=== PATIENT | male | born 1965 | race Caucasian/White ===

== ENCOUNTER 2021-11-16 10:39 | Inpatient (IN) ==
[2021-11-16] MEDS ORDERED: MoRPHine SULFATE 10 MG/ML CARP/VIAL IV STA (11:03)
[2021-11-16] MEDS ORDERED: SODIUM CHLORIDE 0.9% 1000ML 1,000 ML IV STA (11:03)
[2021-11-16] MEDS ORDERED: ONDANSETRON INJ 2 MG/ML 2 ML VIAL IV STA (11:03)
--- NOTE | 2021-11-16 11:19 | Emergency Department Note ---
History of Present Illness General Chief complaint: Flank Pain Stated complaint: LITHOTRIPSY ON WED/SEVERE R SIDE KIDNEY PAIN Time Seen by Provider: 11/16/21 10:58 History of Present Illness Maximum Pain Intensity: 9 55-year-old male who returns to the emergency department with complaint of recurrent and severe right flank pain. The patient was initially seen in the emergency department on 11/11/[address] showing a 7 mm proximal right ureteral calculus with mild hydroureteronephrosis. The patient underwent ESWL this past Wednesday morning (11/14/2021) with Dr. Looney. The patient reports that he was doing well until late last evening when the pain started to come back. He now reports high flank pain radiating into the right lower quadrant. He has not noticed any significant blood in his urine. The patient has had nausea and vomiting this morning. He denies fever or chills. He rates his discomfort a 9 out of 10. The patient took some hydrocodone this morning without relief. Home Medications Medication Instructions Recorded Confirmed Type fosinopril 10 mg tablet 10 mg PO HS 05/09/19 11/16/21 History omeprazole 20 mg capsule,delayed 20 mg PO HS 05/09/19 11/16/21 History release hydroxyzine HCl 25 mg tablet 25 mg PO BID 07/13/19 11/16/21 History aspirin 81 mg tablet,delayed 81 mg PO HS 02/01/20 11/16/21 History release rosuvastatin 10 mg tablet (Crestor) 10 mg PO HS 02/01/20 11/16/21 History lidocaine 5 % topical patch 1 patch TOP DAILY PRN 03/07/20 11/16/21 History (Lidoderm) azelastine 137 mcg (0.1 %) nasal 1 spray INTRANASAL DAILY PRN 09/15/20 11/16/21 History spray aerosol bictegravir 50 mg-emtricitabine 1 tab PO HS 09/15/20 11/16/21 History 200 mg-tenofovir alafenam 25 mg tablet (Biktarvy) fluoxetine 10 mg capsule 10 mg PO HS 09/15/20 11/16/21 History metoprolol succinate 25 mg 25 mg PO HS 09/15/20 11/16/21 History tablet,extended release 24 hr montelukast 10 mg tablet 10 mg PO HS 09/15/20 11/16/21 History albuterol sulfate 90 mcg/actuation 1 puff INHALATION Q6H PRN 10/04/20 11/16/21 History aerosol inhaler (ProAir HFA) ondansetron 4 mg disintegrating 4 mg PO Q6H PRN #10 tab 11/11/21 11/16/21 Rx tablet oxycodone 5 mg tablet 5 mg PO Q4H PRN #15 tab 11/11/21 11/16/21 Rx tamsulosin 0.4 mg capsule (Flomax) 0.4 mg PO HS 11/11/21 11/16/21 History hydrocodone 5 mg-acetaminophen 325 1 tab PO Q6H PRN #10 tab 11/14/21 11/16/21 Rx mg tablet Allergies Allergy/AdvReac Type Severity Reaction Status Date / Time No Known Allergies Allergy Verified 11/14/21 08:30 Past Med/Surg History Medical History Anxiety Chronic obstructive pulmonary disease inhaler prn Depression Diverticulitis History of kidney stones HIV (human immunodeficiency virus infection) Hypertension Sleep apnea cpap Surgical History History of colonoscopy History of cystoscopy History of esophagogastroduodenoscopy (EGD) History of lithotripsy History of tonsillectomy History of tooth extraction Family History Other No family history of adverse response to anesthesia No significant family history Social History Smoking Status: Current every day smoker Tobacco Type: Cigarettes Cigarettes Per Day: 10 a day; Second Hand Exposure: No; Do You Dip or Chew Tobacco: No; Tobacco Cessation Education Requested by Patient: No Hx Alcohol Use: Yes Alcohol type: beer Hx Substance Use: No Preferred Language: Monegasque Communication Ability: Effective 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 Beliefs That Will Affect Care: None marital status: Single Current Living Situation: Spouse current occupational status: employed Other Information That Helps Us Care for You: No Feels Safe at Home: Yes Safety Concerns: Feels Safe At This Time Assistive Devices: Glasses Review of Systems 10 system review was performed and was negative except for pertinent positives and negatives as indicated in history of present illness Physical Exam Vital Signs Vital Signs - 24 hr 11/16/21 10:54 11/16/21 11:26 Temperature 36.0 C L Temperature Source Temporal Artery Scan Pulse Rate 70 Pulse Rate [Apical] 66 Pulse Rhythm Regular Pulse Rhythm [Apical] Regular Pulse Strength Normal Pulse Strength [Apical] Normal Respiratory Rate 20 18 Respiratory Effort / Characteristics Non-Labored Spontaneous Non-Labored Respiratory Depth Normal Normal Respiratory Pattern Regular Regular Blood Pressure 190/94 H Blood Pressure [Left Arm] 173/102 H Blood Pressure Mean 126 Blood Pressure Mean [Left Arm] 125 Blood Pressure Position Sitting Blood Pressure Position [Left Arm] Lying Pulse Oximetry 98 98 Oxygen Delivery Method Room Air Room Air Sepsis Recent Fever Within 48 Hours No Sepsis New/Unexplained Change in Mental Status No Sepsis Action Taken by Nursing No Action Required CONSTITUTIONAL: Healthy and well nourished. Patient appears in moderate discomfort. He is holding an emesis bag HEENT: No scleral icterus or conjunctival injection/pallor. NECK: Full active range of motion without discomfort. LYMPHATICS: No cervical chain adenopathy. RESPIRATORY: Clear to auscultation bilaterally with no wheezing, crackles, rhonchi or stridor. CARDIOVASCULAR: Regular rate and rhythm with no murmurs, rubs or gallops. GASTROINTESTINAL: Bowel sounds present in all quadrants. Patient has notable right lower quadrant and right flank tenderness to palpation. No abdominal rigidity, guarding or rebound. MUSCULOSKELETAL: Full range of motion of all joints without discomfort. INTEGUMENTARY: No rash or other significant dermatologic conditions noted. HEMATOLOGIC: No ecchymosis or petechiae. PSYCHIATRIC: Positive affect. NEUROLOGIC: No focal neurologic deficits noted. Course Course Patient history and physical exam were performed. Nurses notes were reviewed. Vital signs were reviewed, showing an elevated blood pressure 190/94. The patient is otherwise not tachycardic or febrile. I did review prior medical records, including the patient's ED visit on 11/11/2021, as well as the patient's ESWL procedure notes from 11/14/2021. She now presents to the emergency department with increasing pain after having a. Of note discomfort after his lithotripsy procedure. IV access was established, and labs were drawn. The patient was hydrated with a liter of normal saline, and administered IV morphine and Zofran. Review of labs shows an elevated white count of over 17,000. Creatinine and CMP are otherwise unremarkable. Urinalysis shows hematuria without signs of infection. Repeat noncontrast CT imaging of the abdomen and pelvis shows a 6 mm distal right ureteral calculus with a few UVJ stone fragments, and moderate hydroureteronephrosis. Findings were discussed with the patient, who reported minimal pain relief with the IV morphine. The patient was administered IV Toradol and Dilaudid. The case was then further discussed with Dr. Looney, urologist, who recommended admission to the hospital, and if he is unable to pass the stone by morning, may have to perform an additional interventional procedure. Case was then further discussed with the [facility] hospitalist service. Please see their and Dr. Looney's dictations for further treatment and final disposition. The hospitalist service did request that I put in an order for an IV antibiotic given his leukocytosis and history of HIV. An order was placed for IV Rocephin. Administered Medications Ceftriaxone Sodium 1,000 mg/ (Dextrose) 50 mls @ 100 mls/hr IV Q24H FRANCISCA; Protocol Stop: 11/26/21 12:59 Last Infusion: 11/16/21 13:15 Dose: 0 mls/hr Documented by: [id number] Admin: 11/16/21 13:12 Dose: 100 mls/hr Documented by: [id number] Lactated Ringer's (Lr) 1,000 mls @ 75 mls/hr IV .[id number] FRANCISCA Stop: 12/16/21 17:59 Last Admin: 11/16/21 17:16 Dose: 75 mls/hr Documented by: [id number] Discontinued Medications Hydromorphone HCl (Hydromorphone Inj 0.5 Mg/0.5 Ml Syr) 0.5 mg IV NOW STA Stop: 11/16/21 12:24 Last Admin: 11/16/21 12:41 Dose: 0.5 mg Documented by: [id number] Sodium Chloride (Nss 1000ml) 1,000 mls @ 999 mls/hr IV .[id number] STA Stop: 11/16/21 12:03 Last Infusion: 11/16/21 13:30 Dose: 0 mls/hr Documented by: [id number] Admin: 11/16/21 11:13 Dose: 999 mls/hr Documented by: [id number] Ketorolac Tromethamine (Ketorolac Tromethamine 15 Mg/Ml Vial) 15 mg IV NOW STA Stop: 11/16/21 12:24 Last Admin: 11/16/21 12:40 Dose: 15 mg Documented by: [id number] Morphine Sulfate (Morphine Sulfate 10 Mg/Ml Carp/Vial) 8 mg IV NOW STA Stop: 11/16/21 11:04 Last Admin: 11/16/21 11:12 Dose: 8 mg Documented by: [id number] Morphine Sulfate (Morphine Sulfate 4 Mg/Ml 1 Ml Carp\Vial) Confirm Administered Dose 4 mg .ROUTE .STK-MED ONE Stop: 11/16/21 16:53 Last Admin: 11/16/21 16:56 Dose: 3 mg Documented by: [id number] Ondansetron HCl (Ondansetron Inj 2 Mg/Ml 2 Ml Vial) 4 mg IV NOW STA Stop: 11/16/21 11:04 Last Admin: 11/16/21 11:12 Dose: 4 mg Documented by: [id number] Medical Decision Making Medical Records Attestation: I reviewed the patient's medical records. Home Medications Current Medication List: was personally reviewed by me Laboratory Data Attestation: I reviewed the patient's lab results. Result diagrams: 11/16/21 11:22 11/16/21 11:22 Lab Results 11/16/21 11/16/21 11/16/21 Range/Units 11: 11:22 11:22 WBC 17.01 H (4.8-10.8) K/uL RBC 4.49 L (4.7-6.1) M/uL Hgb 14.6 (14.0-18.0) g/dL Hct 42.5 (42-52) % MCV 94.7 (80-100) fL MCH 32.5 (25-34) pg MCHC 34.4 (32-36) g/dL RDW Std Deviation 49.3 H (36.4-46.3) fL RDW Coeff of Josephine 14.1 (11.5-14.5) % Plt Count 280 (130-400) K/uL MPV 10.6 H (7.4-10.4) fL Immature Gran % (Auto) 0.2 % Neut % (Auto) 71.9 % Lymph % (Auto) 14.3 % Hughes % (Auto) 12.6 % Eos % (Auto) 0.8 % Baso % (Auto) 0.2 % Neut # (Auto) 12.20 H (1.4-6.5) K/uL Lymph # (Auto) 2.44 (1.2-3.4) K/uL Hughes # (Auto) 2.15 H (0.11-0.59) K/uL Eos # (Auto) 0.14 (0-0.5) K/uL Baso # (Auto) 0.04 (0-0.2) K/uL Immature Gran # (Auto) 0.04 H (0.00-0.02) K/uL Sodium 132 L (136-145) mmol/L Potassium 3.9 (3.5-5.1) mmol/L Chloride 98 (98-107) mmol/L Carbon Dioxide 25 (21-32) mmol/L Anion Gap 9 (3-11) BUN 12 (6-23) mg/dl Creatinine 0.84 (0.6-1.4) mg/dl Est Cr Clr Drug Dosing 112.5 ml/min Est GFR ( Amer) 112.7 ml/min Est GFR (Non-Af Amer) 97.2 ml/min BUN/Creatinine Ratio 14.3 (10-20) Glucose 95 (70-99(Fasting)) mg/dl Calcium 8.6 (8.5-10.1) mg/dl Total Bilirubin 0.5 (0.2-1.0) mg/dl AST 21 (13-39) U/L ALT 16 (7-52) U/L Alkaline Phosphatase 80 (34-104) U/L Total Protein 7.6 (6.0-8.3) gm/dl Albumin 4.2 (3.4-5.0) gm/dl Globulin 3.4 (2.5-4.0) gm/dl Albumin/Globulin Ratio 1.2 (0.9-2) Lipase 25 (11-82) U/L Urine Color Yellow Urine Appearance Clear (Clear) Urine pH 7.0 (4.5-7.5) Ur Specific [place] 1.013 (1.000-1.030) Urine Protein Negative (Negative) Urine Glucose (UA) Negative (Negative) Urine Ketones Negative (Negative) Urine Blood 1+ H (Negative) Urine Nitrite Negative (Negative) Urine Bilirubin Negative (Negative) Urine Urobilinogen Negative (Negative) Ur Leukocyte Esterase Negative (Negative) Urine WBC (Auto) 1-5 (0-5) /hpf Urine RBC (Auto) 5-10 H (0-4) /hpf U Hyaline Cast (Auto) 0 (0-5) /lpf U Epithel Cells (Auto) 0-5 (0-5) /lpf Urine Bacteria (Auto) Negative (Negative) Imaging Data Attestation: I personally reviewed and interpreted this imaging study as follows: My Impression: My interpretation of a noncontrast CT of the abdomen and pelvis shows a 6 mm distal right ureteral calculus, likely movement from the prior proximal position. A few additional fragments are noted at the UVJ. Moderate hydroureteronephrosis is noted. Radiologist report was also reviewed. Radiologist's Impression: Abdomen/Pelvis CT 11/16/21 11:03 CT abd pelvis wo con CLINICAL HISTORY: Severe R flank pain s/p ESWL Fri AM TECHNIQUE: Helical axial images of the abdomen and pelvis were obtained. Automated dose lowering techniques and/or adjustment according to patient size were utilized for this exam. This exam was performed without intravenous contrast. COMPARISON: Comparison is made to CT abdomen pelvis 12/21/2021 FINDINGS: Lower chest: Bibasilar atelectasis versus scarring is seen. Liver: Unremarkable. No focal lesions are seen. Gallbladder and biliary tree: No calcified gallstones. Normal caliber wall. No intra- or extrahepatic biliary ductal dilation. Pancreas: Unremarkable, no focal lesions. Spleen: Unremarkable. Adrenals: Unremarkable. Kidneys and ureters: There is moderate right hydronephrosis. Multiple stones are seen in the kidneys which appear nonobstructed. In addition, there is a 6 mm stone in the distal ureter, more distal than in the prior exam. The left kidney is unremarkable. Bladder: Calcifications are seen at the right ureterovesicular junction which may represent layering stones in the bladder or UVJ stones. Reproductive organs: Unremarkable. Bowel: Diverticulosis is seen without evidence of diverticulitis. Lymph nodes Retroperitoneal: There is an 11 mm gastrohepatic lymph node. Mesenteric: Unremarkable. Pelvic: Unremarkable. Peritoneum: Normal. Vessels: Unremarkable. Abdominal wall: Unremarkable. Bones: Degenerative changes in the visualized spine. IMPRESSION: Moderate right hydronephrosis/hydroureter, somewhat increased from prior exam. The previously noted ureteric stone is located more distally in the ureter. UVJ stones are also noted. ACT 112: Negative or not required by law. Electronically signed by: Arvin Rowell M.D. 11/16/2021 12:08 PM Blood Pressure Blood Pressure Findings: Elevated blood pressure Blood Pressure Disposition: elevated BP felt to be situational MDM Narrative Patient presents to the emergency department with complaint of recurrent right flank pain after undergoing ESWL procedure for a 7 mm proximal right ureteral calculus. Today CT imaging does not show any other concerning findings such as ureteral or renal injury. The stone appears to have now transition to the distal ureter with some UVJ fragments. Patient does not show evidence for acute kidney injury or UTI. He does have leukocytosis of unknown etiology. The hospital service did request that I put in an order for an IV antibiotic, which was administered. Impression & Plan Calculus of distal right ureter, Status post extracorporeal shock wave therapy Discharge Plan Visit Data Chief Complaint: Flank Pain Stated Complaint: LITHOTRIPSY ON FRI/SEVERE R SIDE KIDNEY PAIN ED Provider: Cj Guerrero ED Midlevel Provider: Ernesto Anthony Discharge Problem: Calculus of distal right ureter, Status post extracorporeal shock wave therapy Patient Disposition: Admitted As Inpatient Discharge Instructions Interventions: ED Discharge Assessment Last Done: 11/16/21 16:56
[2021-11-16 11:33] LABS: Basophils # (auto) 0.04 K/uL (0-0.2); Basophils % (auto) 0.2 %; Eosinophils # (auto) 0.14 K/uL (0-0.5); Eosinophils % (auto) 0.8 %; Hematocrit (blood only) 42.5 % (42-52); Hemoglobin 14.6 g/dL (14.0-18.0); Immature Granulocytes # (auto) 0.04 K/uL (0.00-0.02); Immature Granulocytes % (auto) 0.2 %; Lymphocytes # (auto) 2.44 K/uL (1.2-3.4); Lymphocytes % (auto) 14.3 %; Mean Corpuscular Hemoglobin 32.5 pg (25-34); Mean Corpuscular Hgb Conc 34.4 g/dL (32-36); Mean Corpuscular Volume 94.7 fL (80-100); Mean Platelet Volume 10.6 fL (7.4-10.4); Monocytes # (auto) 2.15 K/uL (0.11-0.59); Monocytes % (auto) 12.6 %; Neutrophils % (auto) 71.9 %; Platelet Count 280 K/uL (130-400); RDW Coefficient of Variation 14.1 % (11.5-14.5); RDW Standard Deviation 49.3 fL (36.4-46.3); Red Blood Count 4.49 M/uL (4.7-6.1); White Blood Count 17.01 K/uL (4.8-10.8)
[2021-11-16 11:44] LABS: Appearance Urine Clear (Clear); Bacteria Urine Automated Negative (Negative); Bilirubin Urine Negative (Negative); Blood Urine 1+ (Negative); Cast Urine Automated 0 /lpf (0-5); Color Urine Yellow; Epithelial Cell Urine Auto 0-5 /lpf (0-5); Glucose Urine UA Negative (Negative); Ketones Urine Negative (Negative); Leukocyte Esterase Urine Negative (Negative); Nitrite Urine Negative (Negative); Protein Urine Negative (Negative); Specific Gravity Urine 1.013 (1.000-1.030); Urobilinogen Urine Negative (Negative)
[2021-11-16 11:52] LABS: Albumin Globulin Ratio 1.2 (0.9-2); Albumin Level 4.2 gm/dl (3.4-5.0); BUN Creatinine Ratio 14.3 (10-20); Bilirubin,Total 0.5 mg/dl (0.2-1.0); Calcium 8.6 mg/dl (8.5-10.1); Creatinine Clr Calc Pharmacy 112.5 ml/min; Est GFR (African American) 112.7 ml/min; Est GFR (Non-African American) 97.2 ml/min; Globulin 3.4 gm/dl (2.5-4.0); Potassium 3.9 mmol/L (3.5-5.1); Total Protein 7.6 gm/dl (6.0-8.3)
--- NOTE | 2021-11-16 12:10 | CT Scan Report ---
CT abd pelvis wo con CLINICAL HISTORY: Severe R flank pain s/p ESWL Fri AM TECHNIQUE: Helical axial images of the abdomen and pelvis were obtained. Automated dose lowering tech niques and/or adjustment according to patient size were utilized for this exam. This exam was perfor med without intravenous contrast. COMPARISON: Comparison is made to CT abdomen pelvis 12/21/2021 FINDINGS: Lower chest: Bibasilar atelectasis versus scarring is seen. Liver: Unremarkable. No focal lesions are seen. Gallbladder and biliary tree: No calcified gallstones. Normal caliber wall. No intra- or extrahepatic biliary ductal dilation. Pancreas: Unremarkable, no focal lesions. Spleen: Unremarkable. Adrenals: Unremarkable. Kidneys and ureters: There is moderate right hydronephrosis. Multiple stones are seen in the kidneys which appear nonobstructed. In addition, there is a 6 mm stone in the distal ureter, more distal than in the prior exam. The left kidney is unremarkable. Bladder: Calcifications are seen at the right ureterovesicular junction which may represent layering stones in the bladder or UVJ stones. Reproductive organs: Unremarkable. Bowel: Diverticulosis is seen without evidence of diverticulitis. Lymph nodes Retroperitoneal: There is an 11 mm gastrohepatic lymph node. Mesenteric: Unremarkable. Pelvic: Unremarkable. Peritoneum: Normal. Vessels: Unremarkable. Abdominal wall: Unremarkable. Bones: Degenerative changes in the visualized spine. IMPRESSION: Moderate right hydronephrosis/hydroureter, somewhat increased from prior exam. The previously noted u reteric stone is located more distally in the ureter. UVJ stones are also noted. ACT 112: Negative or not required by law. Electronically signed by: Arvin Rowell M.D. 11/16/2021 12:08 PM
[2021-11-16] MEDS ORDERED: HYDROmorphone INJ 0.5 MG/0.5 ML SYR IV STA (12:23)
[2021-11-16] MEDS ORDERED: KETOROLAC TROMETHAMINE 15 MG/ML VIAL IV STA (12:23)
--- NOTE | 2021-11-16 12:54 | History & Physical Report ---
Date of Service November 16, 2021 Assessment & Plan (1) Nephrolithiasis: Plan: Patient will be admitted to the hospital we will proceed as follows: We will allow clear liquids for the present time Analgesics will be provided Antiemetics will be provided We will provide hydration with IV fluids Continue the patient on Flomax for expulsive therapy I discussed with the treating clinician emergency department and he is planning on placing the patient on Rocephin which we will continue The treating clinician emergency department has discussed case with Dr. Looney of urology who feels the patient may warrant additional procedural intervention. We will therefore make the patient n.p.o. after midnight this evening so he will be ready for any planned procedures tomorrow Patient is HIV positive and I have discussed his medication regimen with him. We will keep him on his home regimen but he will contact his family to bring in his medicines from home that he may utilize in the event that is not stocked in our pharmacy here at the hospital We will use SCDs for DVT prevention will avoid chemical means due to planned procedures tomorrow He will be a level 1 full code History of Present Illness Chief Complaint: Right flank pain Primary Care Provider: Kaila Saenz DO This is a 55-year-old male who recently underwent extracorporeal shockwave lithotripsy as directed by Dr. Looney on 11/14/2021. The operative report from this procedure was reviewed and good fragmentation of the patient's kidney stone was noted and he was discharged home in stable condition the same day of his procedure. The patient notes that he was doing very well following his procedure however last evening he developed right-sided flank pain that radiated to his abdomen. He did not note any palliative or provocative factors at the time however the pain persisted throughout the evening so he presented to the emergency department at [facility] today. He denies any fevers, shakes, chills. He does report nausea vomiting. The patient notes that he has not had any dysuria and he has not noted any hematuria. He denies any urinary frequency. He does report a history of kidney stones in the past on both sides for which he has had to have numerous interventions. Upon presentation to the emergency department today the patient did have labs and imaging which I independently reviewed. White blood cell count is elevated at 17.0. Hemoglobin, hematocrit, and platelet count are all within normal range. Chemistry profile showed sodium was 132. Potassium, BUN, and creatinine were all within the normal range. There is no significant elevation of LFTs or lipase. Urinalysis did show 1+ blood but was otherwise not indicative of infection. A Covid test has been performed and is pending. CT scan of the abdomen pelvis showed moderate right-sided hydroureteronephrosis which was beto ewhat increased when compared to prior CT scans. There is a 6 mm stone noted in the distal right ureter. At the time of my interview the patient notes that the pain was alleviated somewhat with medicines that were administered in the emergency department. He was in no distress at the time of my exam. Allergies Allergy/AdvReac Type Severity Reaction Status Date / Time No Known Allergies Allergy Verified 11/14/21 08:30 Home Medications Medication Instructions Recorded Confirmed Type fosinopril 10 mg tablet 10 mg PO HS 05/09/19 11/16/21 History omeprazole 20 mg capsule,delayed 20 mg PO HS 05/09/19 11/16/21 History release hydroxyzine HCl 25 mg tablet 25 mg PO BID 07/13/19 11/16/21 History aspirin 81 mg tablet,delayed 81 mg PO HS 02/01/20 11/16/21 History release rosuvastatin 10 mg tablet (Crestor) 10 mg PO HS 02/01/20 11/16/21 History lidocaine 5 % topical patch 1 patch TOP DAILY PRN 03/07/20 11/16/21 History (Lidoderm) azelastine 137 mcg (0.1 %) nasal 1 spray INTRANASAL DAILY PRN 09/15/20 11/16/21 History spray aerosol bictegravir 50 mg-emtricitabine 1 tab PO HS 09/15/20 11/16/21 History 200 mg-tenofovir alafenam 25 mg tablet (Biktarvy) fluoxetine 10 mg capsule 10 mg PO HS 09/15/20 11/16/21 History metoprolol succinate 25 mg 25 mg PO HS 09/15/20 11/16/21 History tablet,extended release 24 hr montelukast 10 mg tablet 10 mg PO HS 09/15/20 11/16/21 History albuterol sulfate 90 mcg/actuation 1 puff INHALATION Q6H PRN 10/04/20 11/16/21 History aerosol inhaler (ProAir HFA) ondansetron 4 mg disintegrating 4 mg PO Q6H PRN #10 tab 11/11/21 11/16/21 Rx tablet oxycodone 5 mg tablet 5 mg PO Q4H PRN #15 tab 11/11/21 11/16/21 Rx tamsulosin 0.4 mg capsule (Flomax) 0.4 mg PO HS 11/11/21 11/16/21 History hydrocodone 5 mg-acetaminophen 325 1 tab PO Q6H PRN #10 tab 11/14/21 11/16/21 Rx mg tablet Past Med/Surg History Medical History Anxiety Chronic obstructive pulmonary disease inhaler prn Depression Diverticulitis History of kidney stones HIV (human immunodeficiency virus infection) Hypertension Sleep apnea cpap Surgical History History of colonoscopy History of cystoscopy History of esophagogastroduodenoscopy (EGD) History of lithotripsy History of tonsillectomy History of tooth extraction Family History Other No family history of adverse response to anesthesia No significant family history Social History Smoking Status: Current every day smoker Tobacco Type: Cigarettes Cigarettes Per Day: 10 a day; Second Hand Exposure: No; Do You Dip or Chew Tobacco: No; Tobacco Cessation Education Requested by Patient: No Hx Alcohol Use: Yes Alcohol type: beer Hx Substance Use: No Preferred Language: Yoruba Communication Ability: Effective 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 Beliefs That Will Affect Care: None marital status: Single Current Living Situation: Spouse current occupational status: employed Other Information That Helps Us Care for You: No Feels Safe at Home: Yes Safety Concerns: Feels Safe At This Time Assistive Devices: None Review of Systems Constitutional: no fever and no chills Eyes: + corrective lenses Ear, Nose, Mouth, Throat: no ear pain Respiratory: no cough and no dyspnea Cardiovascular: no chest pain Gastrointestinal: + abdominal pain (Radiating from right flank), + nausea and + vomiting Genitourinary: + flank pain (Right sided); no dysuria, no urinary frequency or no hematuria Musculoskeletal: + back pain (Right flank) Integumentary: no rash Neurologic: no localized weakness Physical Exam Constitutional: well developed and well nourished; no acute distress Eyes: no conjunctival abnormality ENMT: Ears: no hearing impairment Neck: trachea midline Respiratory: normal respiratory effort, lungs clear to auscultation Cardiovascular: Rate/Rhythm: regular rate and regular rhythm Gastrointestinal (Abdomen): Abdomen is soft and nondistended. There is pain with palpation in the right hypogastric and right lower quadrant with palpation. No rebound tenderness or guarding. Musculoskeletal: No calf tenderness Skin: no rashes Neurologic: moves all extremities Psychiatric: A+Ox3, euthymic affect Genitourinary: + CVA tenderness (Right sided noted with percussion; no left- sided CVA tenderness) Results & Data Results & Data ([facility]) Vital Signs (Past 12 Hours) Vital Signs Temp Pulse Pulse Resp BP BP Pulse Ox 11/16/21 11:26 66 18 173/102 H 98 11/16/21 10:54 36.0 C L 70 20 190/94 H 98 Supervising Physician Co-Signing Physician Notes I personally saw and examined the patient. I verified all chaney points and agree with Jos Sims PA-C with the following exceptions and/or additions: 55 year old with recurrent pain and ureterolithiasis following lithotripsy O/E - no respiratory distress, Right CVA tenderness and RLQ abdominal tenderness on palpation, no rebound or guarding. A/P Ureterolithiasis - NPO after midnight. IV fluids. Consult urology for possible ureteral stent +/- lithotripsy tomorrow. PG Care Time/CCT Total # of Minutes Spent Total Time Spent with Patient: Total time spent is greater than 50% in coordination of care (as documented) at patient's floor/unit and/or counseling patient: Coding Level of Care Code INT OBSERVATION CARE 70M LVL 3 Diagnoses Nephrolithiasis N20.0
[2021-11-16] MEDS: cefTRIAXone SODIUM 1,000 MG in DEXTROSE 5% 50 ML IV SCH (13:12)
[2021-11-16] MEDS ORDERED: ALBUTEROL HFA 8 GM INHALER INH PRN (16:42)
[2021-11-16] MEDS ORDERED: ONDANSETRON INJ 2 MG/ML 2 ML VIAL IV PRN (16:42)
[2021-11-16] MEDS ORDERED: MoRPHine SULFATE 4 MG/ML 1 ML CARP\\VIAL ONE (16:52)
[2021-11-16] MEDS: LACTATED RINGER'S 1,000 ML IV SCH (17:16)
[2021-11-16] MEDS ORDERED: FLUARIX QUADRIVALENT 0.5 ML SYR IM ONE (18:21)
[2021-11-16] MEDS: MoRPHine SULFATE 4 MG/ML 1 ML CARP\\VIAL IV PRN (21:57)
[2021-11-16] MEDS: MONTELUKAST SODIUM 10 MG TABLET PO SCH (22:05)
[2021-11-16] MEDS: METOPROLOL SUCC 25MG EXT REL TAB PO SCH (22:05)
[2021-11-16] MEDS: ROSUVASTATIN CALCIUM 10 MG TAB PO SCH (22:05)
[2021-11-16] MEDS: hydrOXYzine HCl 25 MG TAB PO SCH (22:05)
[2021-11-16] MEDS: TAMSULOSIN HCL 0.4 MG CAP PO SCH (22:05)
[2021-11-16] MEDS: PANTOprazole 40 MG TAB PO SCH (22:06)
[2021-11-16] MEDS: FLUoxetine HCL 10 MG CAP PO SCH (22:06)
[2021-11-17] MEDS: MoRPHine SULFATE 4 MG/ML 1 ML CARP\\VIAL IV PRN ×2 (01:45→06:06)
[2021-11-17] MEDS: BIKTARVY: ORDER AWAITING ACTION SCH ×3 (02:00→17:11)
[2021-11-17] MEDS: LACTATED RINGER'S 1,000 ML IV SCH ×2 (06:07→17:16)
[2021-11-17 07:03] LABS: Basophils # (auto) 0.02 K/uL (0-0.2); Basophils % (auto) 0.2 %; Eosinophils # (auto) 0.06 K/uL (0-0.5); Eosinophils % (auto) 0.5 %; Hematocrit (blood only) 39.1 % (42-52); Hemoglobin 13.3 g/dL (14.0-18.0); Immature Granulocytes # (auto) 0.02 K/uL (0.00-0.02); Immature Granulocytes % (auto) 0.2 %; Lymphocytes # (auto) 1.75 K/uL (1.2-3.4); Lymphocytes % (auto) 14.7 %; Mean Corpuscular Volume 94.2 fL (80-100); Mean Platelet Volume 10.6 fL (7.4-10.4); Monocytes # (auto) 1.61 K/uL (0.11-0.59); Monocytes % (auto) 13.5 %; Neutrophils # (auto) 8.48 K/uL (1.4-6.5); Neutrophils % (auto) 70.9 %; Platelet Count 232 K/uL (130-400); RDW Coefficient of Variation 14.2 % (11.5-14.5); RDW Standard Deviation 48.7 fL (36.4-46.3); Red Blood Count 4.15 M/uL (4.7-6.1); White Blood Count 11.94 K/uL (4.8-10.8)
[2021-11-17 07:24] LABS: BUN Creatinine Ratio 13.4 (10-20); Calcium 8.2 mg/dl (8.5-10.1); Creatinine Clr Calc Pharmacy 115.3 ml/min; Est GFR (African American) 113.8 ml/min; Est GFR (Non-African American) 98.2 ml/min; Potassium 3.8 mmol/L (3.5-5.1)
--- NOTE | 2021-11-17 08:00 | Urology Consultation ---
Date of Consultation November 17, 2021 Assessment & Plan (1) Right distal ureteral calculus: (2) Hydroureteronephrosis: (3) Status post extracorporeal shock wave therapy: 55 yo M admitted for intractable right flank pain secondary to right ureteral calculi. - Pt is s/p outpatient Right ESWL on 11/14/21 for proximal right ureteral stone. - Plan of care reviewed with Dr. Garza, urologist marketing operations associate. - Pt afebrile, nontoxic, lab work reviewed - creatinine 0.82 and WBC 11.94. - UA on admission not suspicious for infection, recent urine culture on 11/11 showed low counts of probable mixed cheryl. - On IV Ceftriaxone at present. - CTAP showing moderate right hydronephrosis, distal migration of right ureteral stone with fragments in right UVJ. - Denies stone passage overnight. - Discussed options for stone management including right stent insertion and possible stone treatment today. - Given his severe right flank pain and leukocytosis in the context of obstructing right distal ureteral calculi, will proceed to OR for cystoscopy, right retrograde pyelogram, and right stent insertion, possible ureteroscopy, laser destruction/stone treatment. - Risks and benefits to be reviewed with patient by Dr. Garza. OR notified. COVID test negative. - Will cover with scheduled IV Ceftriaxone preoperatively. - Strain all urine. - Keep NPO for procedure. - Patient is agreeable to the above plan, all questions answered. ATTENDING NOTE: Agree with above. Independently evaluated, assessed, interviewed, and examined. Plan to move forward with treatment of stones in ureter. 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 Numerous right ureteral stones with recent ESWL on wednesday without resolution. Risks and benefits discussed at length for procedure. These include bleeding, infection, injury to surrounding tissues or organs, and risks associated with anesthesia. Patient states understanding and agrees to proceed. Will sign consent and proceed. Plan for cystoscopy with right ureteroscopy and stone treatment. History of Present Illness Reason for Consultation: Kidney stone Requesting Physician: Jos Andrade PA-C Attending Physician: Dov Cifuentes MD History of Present Illness 55 yo M with past medical history of hypertension, HIV, diverticulitis, nephrolithiasis, current tobacco use, depression and anxiety admitted for intractable right flank pain secondary to right ureteral calculi; s/p Right ESWL on 11/14/21. Patient presented to [facility] ED on 11/16/21 with severe right flank pain. He is known to our service for nephrolithiasis and recently s/p Right ESWL on 11/14/21 for right proximal ureteral calculus. Afebrile on arrival. Lab work reviewed and creatinine 0.84 and WBC 17.01. UA showed 1-5 WBC and 5-10 RBC, negative nitrates and bacteria. CTAP wo contrast independently reviewed and showed moderate right hydronephrosis and hydroureter, distal migration of right distal stone with fragments noted in the right UVJ. COVID test negative. ED course included IV fluids, Ketorolac, Morphine, Zofran and IV Ceftriaxone. He was admitted to hospital medicine service. Urology consulted for right ureteral calculi. Patient seen at bedside this AM. Denies stone passage overnight. Continues to have right flank and abdominal pain, rated as 5/10 at present. He is utilizing IV Morphine with moderate relief. Reports nausea, no vomiting. He is voiding spontaneously without difficulty. No dysuria or hematuria. No fever or chills. No chest pain or shortness of breath. He is NPO since midnight. Offers no additional complaints at present. Lab work today reviewed and showed creatinine 0.82, WBC improved to 11.94. Allergies Allergy/AdvReac Type Severity Reaction Status Date / Time No Known Allergies Allergy Verified 11/14/21 08:30 Home Medications Medication Instructions Recorded Confirmed Type fosinopril 10 mg tablet 10 mg PO HS 05/09/19 11/16/21 History omeprazole 20 mg capsule,delayed 20 mg PO HS 05/09/19 11/16/21 History release hydroxyzine HCl 25 mg tablet 25 mg PO BID 07/13/19 11/16/21 History aspirin 81 mg tablet,delayed 81 mg PO HS 02/01/20 11/16/21 History release rosuvastatin 10 mg tablet (Crestor) 10 mg PO HS 02/01/20 11/16/21 History lidocaine 5 % topical patch 1 patch TOP DAILY PRN 03/07/20 11/16/21 History (Lidoderm) azelastine 137 mcg (0.1 %) nasal 1 spray INTRANASAL DAILY PRN 09/15/20 11/16/21 History spray aerosol bictegravir 50 mg-emtricitabine 1 tab PO HS 09/15/20 11/16/21 History 200 mg-tenofovir alafenam 25 mg tablet (Biktarvy) fluoxetine 10 mg capsule 10 mg PO HS 09/15/20 11/16/21 History metoprolol succinate 25 mg 25 mg PO HS 09/15/20 11/16/21 History tablet,extended release 24 hr montelukast 10 mg tablet 10 mg PO HS 09/15/20 11/16/21 History albuterol sulfate 90 mcg/actuation 1 puff INHALATION Q6H PRN 10/04/20 11/16/21 History aerosol inhaler (ProAir HFA) ondansetron 4 mg disintegrating 4 mg PO Q6H PRN #10 tab 11/11/21 11/16/21 Rx tablet oxycodone 5 mg tablet 5 mg PO Q4H PRN #15 tab 11/11/21 11/16/21 Rx tamsulosin 0.4 mg capsule (Flomax) 0.4 mg PO HS 11/11/21 11/16/21 History hydrocodone 5 mg-acetaminophen 325 1 tab PO Q6H PRN #10 tab 11/14/21 11/16/21 Rx mg tablet Patient History Medical History Anxiety Chronic obstructive pulmonary disease inhaler prn Depression Diverticulitis History of kidney stones HIV (human immunodeficiency virus infection) Hypertension Sleep apnea cpap Surgical History History of colonoscopy History of cystoscopy History of esophagogastroduodenoscopy (EGD) History of lithotripsy History of tonsillectomy History of tooth extraction Family History Other No family history of adverse response to anesthesia No significant family history Social History Smoking Status: Current every day smoker Tobacco Type: Cigarettes Cigarettes Per Day: 10 a day; Second Hand Exposure: No; Do You Dip or Chew Tobacco: No; Tobacco Cessation Education Requested by Patient: No Hx Alcohol Use: Yes Alcohol type: beer Hx Substance Use: No Preferred Language: [place] Communication Ability: Effective 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 Beliefs That Will Affect Care: None marital status: Single Current Living Situation: Spouse current occupational status: employed Other Information That Helps Us Care for You: No Feels Safe at Home: Yes Safety Concerns: Feels Safe At This Time Assistive Devices: None Review of Systems Constitutional: as per Subjective / HPI Eyes: + corrective lenses Ear, Nose, Mouth, Throat: no problem reported Respiratory: no dyspnea Cardiovascular: no chest pain Gastrointestinal: as per Subjective / HPI Genitourinary: + as per Subjective / HPI Musculoskeletal: no problem reported Integumentary: no problem reported Neurologic: no problem reported Psychiatric: no problem reported Physical Exam Constitutional: well developed and well nourished; no acute distress and not ill appearing Neck: normal visual inspection Respiratory: normal respiratory effort and able to speak in complete sentences; no respiratory distress and no labored breathing Cardiovascular: Extremities: no pedal edema Gastrointestinal (Abdomen): Inspection/Auscultation: abdomen normal to inspection; abdomen not distended Percussion/Palpation: + abdomen tender (mildly tender to palpation at right lower abdomen) and abdomen soft; no guarding Musculoskeletal: Head/Neck/Chest: normocephalic and head atraumatic Skin: no visible rashes Neurologic: moves all extremities and awake Psychiatric: Orientation: alert, oriented x 3 and cooperative Eye Contact: good eye contact Genitourinary: + CVA tenderness (mild tenderness to palpation on right flank) Results & Data ([facility]) Vital Signs (Past 12 Hours) Vital Signs Temp Pulse Resp BP BP Pulse Ox 11/17/21 07:00 36.5 C 70 20 177/91 H 168/84 H 95 11/16/21 21:46 36.6 C 68 18 172/91 H 95 PG Care Time/CCT Total # of Minutes Spent Total Time Spent with Patient: Total time spent is greater than 50% in coordination of care (as documented) at patient's floor/unit and/or counseling patient: Coding Level of Care Code 68824 Inpt Consult Level 3 Diagnoses Right distal ureteral calculus N20.1 Status post extracorporeal shock wave therapy Z98.890 Hydroureteronephrosis N13.30
[2021-11-17] MEDS: hydrOXYzine HCl 25 MG TAB PO SCH ×2 (09:17→20:23)
[2021-11-17] MEDS: ACETAMINOPHEN 1,000 MG/100 ML VIAL IV PRN (09:20)
[2021-11-17] MEDS: cefTRIAXone SODIUM 1,000 MG in DEXTROSE 5% 50 ML IV SCH (12:31)
--- NOTE | 2021-11-17 13:29 | Anesthesiology Consultation ---
Date of Service November 17, 2021 Assessment & Plan Chart Review Chart Review: Acceptable Risk for Surgery Consults Requested none Proposed Anesthesia Risk / Benefits Reviewed With: PT / POA / Parent / Guardian, Accepts Plan and Informed Consent Obtained History Surgery Operation Date: 11/17/21 10:00 Proposed Procedures p Cystoscopy, Right Retrograde Pyelogram, Right Stent Insertion, Possible Ure teroscopy and Laser Destruction Stone Treatment - Baldemar Garza, DO Height/Weight Height: 5 ft 10 in Weight: 95.5 kg Allergies Allergy/AdvReac Type Severity Reaction Status Date / Time No Known Allergies Allergy Verified 11/14/21 08:30 Medications Home Medications Medication Instructions Recorded Confirmed Last Taken fosinopril 10 mg tablet 10 mg PO HS 05/09/19 11/16/21 11/15/21 omeprazole 20 mg capsule,delayed 20 mg PO HS 05/09/19 11/16/21 11/15/21 release hydroxyzine HCl 25 mg tablet 25 mg PO BID 07/13/19 11/16/21 11/15/21 aspirin 81 mg tablet,delayed 81 mg PO HS 02/01/20 11/16/21 11/15/21 release rosuvastatin 10 mg tablet (Crestor) 10 mg PO HS 02/01/20 11/16/21 11/15/21 lidocaine 5 % topical patch 1 patch TOP DAILY PRN 03/07/20 11/16/21 11/15/21 (Lidoderm) azelastine 137 mcg (0.1 %) nasal 1 spray INTRANASAL DAILY PRN 09/15/20 11/16/21 09/15/20 spray aerosol bictegravir 50 mg-emtricitabine 1 tab PO HS 09/15/20 11/16/21 11/15/21 200 mg-tenofovir alafenam 25 mg tablet (Biktarvy) fluoxetine 10 mg capsule 10 mg PO HS 09/15/20 11/16/21 11/15/21 metoprolol succinate 25 mg 25 mg PO HS 09/15/20 11/16/21 11/15/21 tablet,extended release 24 hr montelukast 10 mg tablet 10 mg PO HS 09/15/20 11/16/21 11/15/21 albuterol sulfate 90 mcg/actuation 1 puff INHALATION Q6H PRN 10/04/20 11/16/21 11/15/21 aerosol inhaler (ProAir HFA) ondansetron 4 mg disintegrating 4 mg PO Q6H PRN #10 tab 11/11/21 11/16/21 11/14/21 07:30 tablet oxycodone 5 mg tablet 5 mg PO Q4H PRN #15 tab 11/11/21 11/16/21 Unknown tamsulosin 0.4 mg capsule (Flomax) 0.4 mg PO HS 11/11/21 11/16/21 11/15/21 hydrocodone 5 mg-acetaminophen 325 1 tab PO Q6H PRN #10 tab 11/14/21 11/16/21 Unknown mg tablet Active Medications Generic Name Dose Route Start Last Admin Trade Name Freq PRN Reason Stop Dose Admin Fluoxetine HCl 10 mg 11/16/21 21:00 11/16/21 22:06 Fluoxetine Hcl 10 Mg Cap PO 12/16/21 20:59 10 mg HS FRANCISCA Administration Hydroxyzine HCl 25 mg 11/16/21 21:00 11/17/21 09:17 Hydroxyzine Hcl 25 Mg Tab PO 12/16/21 20:59 Not Given BID FRANCISCA Ceftriaxone Sodium 1,000 mg/ 50 mls @ 100 mls/hr 11/16/21 13:00 11/17/21 12:31 Dextrose IV 11/26/21 12:59 100 mls/hr Q24H FRANCISCA Administration Protocol Acetaminophen 1,000 mg in 100 mls @ 400 mls/hr 11/16/21 16:42 11/17/21 09:50 Ofirmev IV 11/19/21 16:41 Infused Q8H PRN Infusion pain Lactated Ringer's 1,000 mls @ 75 mls/hr 11/16/21 18:00 11/17/21 06:07 Lr IV 12/16/21 17:59 75 mls/hr .[id number] FRANCISCA Administration Metoprolol Succinate 25 mg 11/16/21 21:00 11/16/21 22:05 Metoprolol Succ 25mg Ext Rel Tab PO 12/16/21 20:59 25 mg HS FRANCISCA Administration Miscellaneous 1 ea 11/17/21 00:00 11/17/21 09:17 Biktarvy: Order Awaiting Action N/A 12/17/21 00:00 Not Given QS FRANCISCA Montelukast Sodium 10 mg 11/16/21 21:00 11/16/21 22:05 Montelukast Sodium 10 Mg Tablet PO 12/16/21 20:59 10 mg HS FRANCISCA Administration Morphine Sulfate 3 mg 11/16/21 16:42 11/17/21 06:06 Morphine Sulfate 4 Mg/Ml 1 Ml Carp\Vial IV 11/30/21 16:41 3 mg Q4H PRN Administration Pain Ondansetron HCl 4 mg 11/16/21 16:42 11/17/21 09:10 Ondansetron Inj 2 Mg/Ml 2 Ml Vial IV 12/16/21 16:41 4 mg Q6H PRN Administration Nausea And Vomiting Pantoprazole Sodium 40 mg 11/16/21 21:00 11/16/21 22:06 Pantoprazole 40 Mg Tab PO 12/16/21 20:59 40 mg HS FRANCISCA Administration Rosuvastatin Calcium 10 mg 11/16/21 21:00 11/16/21 22:05 Rosuvastatin Calcium 10 Mg Tab PO 12/16/21 20:59 10 mg HS FRANCISCA Administration Tamsulosin HCl 0.4 mg 11/16/21 21:00 11/16/21 22:05 Tamsulosin Hcl 0.4 Mg Cap PO 12/16/21 20:59 0.4 mg HS FRANCISCA Administration NPO Date Last Intake of Fluids: 11/16/21 Time Last Intake of Fluids: 23:00 Date Last Intake of Solids: 11/16/21 Time Last Intake of Solids: 10:00 Past Medical History Medical History Anxiety Chronic obstructive pulmonary disease inhaler prn Depression Diverticulitis History of kidney stones HIV (human immunodeficiency virus infection) Hypertension Sleep apnea cpap Past Family History Family History Other No family history of adverse response to anesthesia No significant family history Past Surgical History Surgical History History of colonoscopy History of cystoscopy History of esophagogastroduodenoscopy (EGD) History of lithotripsy History of tonsillectomy History of tooth extraction Social History Smoking Status: Current every day smoker tobacco type: cigarettes Smoking cigarettes per day: 10 a day Do You Dip or Chew Tobacco: No Hx Alcohol Use: Yes Alcohol type: beer alcohol intake frequency: holidays/special occasions only Hx Substance Use: No substance use type: does not use Physical Exam Vital Signs Last Vital Signs Temp 37.0 C 11/17/21 12:40 Pulse 68 11/17/21 12:40 Resp 18 11/17/21 12:40 BP 143/90 H 11/17/21 12:40 Pulse Ox 97 11/17/21 12:40 Testing Laboratory Results 11/17/21 06:22 11/17/21 06:22 Urine Color Yellow 11/16/21 11:22 Urine Appearance Clear (Clear) 11/16/21 11:22 Urine pH 7.0 (4.5-7.5) 11/16/21 11:22 Ur Specific [place] 1.013 (1.000-1.030) 11/16/21 11:22 Urine Protein Negative (Negative) 11/16/21 11:22 Urine Glucose (UA) Negative (Negative) 11/16/21 11:22 Urine Ketones Negative (Negative) 11/16/21 11:22 Urine Nitrite Negative (Negative) 11/16/21 11:22 Ur Leukocyte Esterase Negative (Negative) 11/16/21 11:22 Urine WBC (Auto) 1-5 /hpf (0-5) 11/16/21 11:22 Urine RBC (Auto) 5-10 /hpf (0-4) H 11/16/21 11:22 U Hyaline Cast (Auto) 0 /lpf (0-5) 11/16/21 11:22 U Epithel Cells (Auto) 0-5 /lpf (0-5) 11/16/21 11:22 Urine Bacteria (Auto) Negative (Negative) 11/16/21 11:22
[2021-11-17] MEDS ORDERED: fentaNYL citrate 100 MCG/2 ML VIAL IV PRN (13:31)
[2021-11-17] MEDS ORDERED: ONDANSETRON INJ 2 MG/ML 2 ML VIAL IV PRN (13:31)
[2021-11-17] MEDS ORDERED: ePHEDrine sulfate 50 MG/ML AMP IV PRN (13:31)
[2021-11-17] MEDS ORDERED: HYDROmorphone INJ 2 MG/ML SYR/VIAL IV PRN (13:31)
[2021-11-17] MEDS ORDERED: PROMETHAZINE HCL 12.5 MG in SODIUM CHLORIDE 0.9% 50 ML IV PRN (13:31)
[2021-11-17] MEDS ORDERED: ATROPINE SULFATE 0.1 MG/ML 10ML SYR IV PRN (13:31)
[2021-11-17] MEDS ORDERED: fentaNYL citrate 100 MCG/2 ML VIAL ONE (14:23)
[2021-11-17] MEDS ORDERED: LIDOCAINE 2% 2 ML VIAL/AMP(20MG/ML) INFIL ONE (14:23)
[2021-11-17] MEDS ORDERED: PROPOFOL IV EMULSION 10 MG/ML 20 ML VIAL IV ONE (14:23)
[2021-11-17] MEDS ORDERED: ONDANSETRON INJ 2 MG/ML 2 ML VIAL ONE (14:23)
[2021-11-17] MEDS ORDERED: MIDAZOLAM HCL 1 MG/ML 2ML VIAL ONE (14:24)
[2021-11-17] MEDS ORDERED: SODIUM CHLORIDE 0.9% INJ 10 ML VIAL ONE (14:54)
[2021-11-17] MEDS ORDERED: ePHEDrine sulfate 50 MG/ML AMP ONE (14:54)
[2021-11-17] MEDS ORDERED: DIATRIZOATE MEGLUMINE 30% 100ML VIAL INSTIL PRN (15:27)
--- NOTE | 2021-11-17 15:39 | Operative Report ---
PG Post Operative Report Pre & Post Diagnosis Operation Date: 11/17/21 10:00 Pre-Op Diagnosis: Right Distal Ureteral Calculus Post-Op Diagnosis: Right Distal Ureteral Calculus I identified the patient and participated in the time-out.: Yes Procedure Operation Date: 11/17/21 10:00 Actual Procedures p Cystoscopy with Right Ureteroscopy, Right Retrograde Pyelogram, Right Ureteral Dilation, Right Stent Insertion, and Laser Lithotripsy, Basket Stone Extraction(Right) - Baldemar Garza DO Surgeon Baldemar Garza, II, DO Construction Specialist None Estimated Blood Loss 1 Findings Consistent with Post-Op Diagnosis Stricture at UO at right with stone at UO. Mid ureteral stricture with stone proximal. 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 Stones destroyed to dust and small fragments and larger fragments removed. Specimens Stone Fragments Right Ureter Drains 6 Fr Multilength Anesthesia Type General Complications none Disposition Disposition: Recovery Room Indications Patient with bothersome stones. Risks and benefits discussed at length. Description of Procedure Patient was consented and brought back to the operating room. Patient was placed under anesthesia in the supine position and moved to the dorsal lithotomy position. Patient was prepped and draped in the regular sterile fashion. A time out was completed. A 30degree Cystoscope was placed into the bladder and the entire bladder was examined. The UO's were identified. The UO was cannulized with a catheter and a retrograde pyelogram was completed. A wire was then placed. The Rigid ureteroscope was taken into the ureter. The distal Ureter/Ureteral oriface was found to be stricture with the stone just at the UO. This was dilated. The stone was grasped and removed. The scope was advanced to the mid ureter and another significant stricture was discovered and dilated. A laser fiber was selected and the stones were pulverized to dust and small fragments. Larger fragments were grasped and removed and sent for analysis. A second wire was then placed and the rigid scope removed. The flexible scope was then taken over the second wire and advanced to the proximal ureter and renal pelvis. The entire pelvis was examined and the upper pole had a medullary sponge kidney appearance with numerous stones in the upper pole. Approx 12 larger stones were discovered. The stones were further treated with the laser and basketed for removal. A large amount of fragments were generated. The entire area was once again examined. No residual large fragments or areas of concern were noted. The scope was slowly removed with the wire left in place. Contrast was placed through the scope for a pyelogram to assist in stent placement. The entire ureter was examined as the scope was slowly removed. No obstructions or other areas of concern were noted. With the wire in place, a 6 Fr Double J stent was placed. It was confirmed with fluoroscopy. With the stent in place, the bladder was emptied. The scope was removed. The patient was cleaned, aroused from anesthesia, and transferred to the pacu in stable condition having tolerated the procedure well with no complications. I was present and participated in all aspects of the procedure. The patient will be monitored in the PACU until transferred. Plan to maintain stent for 2-3 weeks. Will need imaging prior to removal in office. I attest to the content of the Intraoperative Record and any orders documented therein. Any exceptions are noted below.
--- NOTE | 2021-11-17 15:54 | Fluoroscopy Report ---
FL retrograde includes kub HISTORY: 55 years-old Male RT right-sided cystourethrogram COMPARISON: CT abdomen and pelvis 11/16/2021 TECHNIQUE: 6 spot fluoroscopic images of the abdomen and pelvis were obtained utilizing 33.8 seconds fluoroscopy time FINDINGS: A right-sided ureteroscope is noted. A guidewire is noted within the right ureter with retrograde inj ection of contrast into the dilated right ureter and renal collecting system. Subsequent images demon strate deployment of a right ureteral stent which appears to be in satisfactory positioning. IMPRESSION: Fluoroscopic assistance as above. ACT 112: Negative or not required by law. The above report was generated using voice recognition software. It may contain grammatical, syntax o r spelling errors. Electronically signed by: Shimon Smith M.D. 11/17/2021 3:53 PM
--- NOTE | 2021-11-17 16:07 | Anesthesiology Progress Note ---
Date of Service November 17, 2021 Anesthesia Post Procedure Vital Signs Vital Signs: Temp Pulse Pulse Pulse Resp BP BP 11/17/21 15:44 36.4 C L 60 18 11/17/21 12:40 37.0 C 68 18 143/90 H 11/17/21 07:00 36.5 C 70 20 177/91 H 11/16/21 21:46 36.6 C 68 18 172/91 H 11/16/21 17:50 36.6 C 57 L 18 165/88 H 11/16/21 17:18 59 L 18 128/83 11/16/21 16:58 36.7 C 57 L 16 134/86 11/16/21 16:56 58 L 16 129/79 11/16/21 16:44 36.7 C 60 16 129/79 BP Pulse Ox 11/17/21 15:44 151/83 H 100 11/17/21 12:40 97 11/17/21 07:00 168/84 H 95 11/16/21 21:46 95 11/16/21 17:50 98 11/16/21 17:18 92 11/16/21 16:58 94 11/16/21 16:56 94 11/16/21 16:44 92 Pain Intensity Lower Abdomen: Pain Intensity: 2 Right Flank: Pain Intensity: 2 Transfer of Care Handoff Completed per policy Notes Mental Status: alert / awake / arousable Patient Amnestic to Procedure: Yes Nausea / Vomiting: adequately controlled Pain: adequately controlled Airway Patency, RR, SpO2: stable & adequate BP & HR: stable & adequate Hydration State: stable & adequate Anesthetic Complications: no major complications apparent and Pt Satisfied with anesthetic care Notes: The patient is awake and comfortable.
--- NOTE | 2021-11-17 19:01 | Hospitalist Progress Note ---
Date of Service November 17, 2021 Assessment & Plan (1) Right distal ureteral calculus: Plan: s/p Cystoscopy with Right Ureteroscopy, Right Retrograde Pyelogram, Right Ureteral Dilation, Right Stent Insertion, and Laser Lithotripsy, Basket Stone Extraction Continue IV fluids and pain medication Given he required admission after initial lithotripsy on will observe overnight and plan on discharge tomorrow. (2) Hydroureteronephrosis: Plan: s/p ureteral stent insertion (3) Status post extracorporeal shock wave therapy: Admission and Anticipated Discharge Date Admission Date: November 16, 2021 Subjective Patient seen after cytopscopy and ureteral stent insertion. Currently pain free. No fever or chills. Review of Systems Review of Systems: All systems reviewed & are unremarkable except as noted in Subjective Physical Exam Constitutional: WD/WN, vitals as above Respiratory: normal respiratory effort, lungs clear to auscultation Cardiovascular: RRR, no murmur, no edema Gastrointestinal (Abdomen): Percussion/Palpation: abdomen soft; abdomen nontender Psychiatric: Orientation: alert Genitourinary: no CVA tenderness Results & Data Results & Data ([facility]) Vital Signs (Past 12 Hours) Vital Signs Temp Pulse Pulse Resp BP BP Pulse Ox 11/17/21 18:15 168/87 H 11/17/21 18:01 36.4 C L 76 20 201/98 H 94 11/17/21 17:30 36.3 C L 66 20 168/90 H 93 11/17/21 17:05 36.6 C 80 18 171/95 H 90 11/17/21 16:40 36.4 C L 73 16 166/88 H 94 11/17/21 16:30 36.4 C L 70 18 174/93 H 93 11/17/21 16:20 36.4 C L 66 14 162/89 H 94 11/17/21 16:10 36.4 C L 75 19 155/86 H 98 11/17/21 16:00 72 19 131/87 98 11/17/21 15:50 68 17 160/86 H 100 11/17/21 15:44 36.4 C L 60 18 151/83 H 100 11/17/21 12:40 37.0 C 68 18 143/90 H 97 PG Care Time/CCT Total # of Minutes Spent Total Time Spent with Patient: Total time spent is greater than 50% in coordination of care (as documented) at patient's floor/unit and/or counseling patient: Coding Level of Care Code 67253 Subseq Hosp Care Lvl 1 Diagnoses Right distal ureteral calculus N20.1 Hydroureteronephrosis N13.30 Status post extracorporeal shock wave therapy Z98.890
[2021-11-17] MEDS: METOPROLOL SUCC 25MG EXT REL TAB PO SCH (20:24)
[2021-11-17] MEDS: TAMSULOSIN HCL 0.4 MG CAP PO SCH (20:24)
[2021-11-17] MEDS: MONTELUKAST SODIUM 10 MG TABLET PO SCH (20:24)
[2021-11-17] MEDS: ROSUVASTATIN CALCIUM 10 MG TAB PO SCH (20:24)
[2021-11-17] MEDS: PANTOprazole 40 MG TAB PO SCH (20:24)
[2021-11-17] MEDS: FLUoxetine HCL 10 MG CAP PO SCH (20:24)
[2021-11-18] MEDS: BIKTARVY: ORDER AWAITING ACTION SCH ×2 (01:10→08:40)
[2021-11-18] MEDS: LACTATED RINGER'S 1,000 ML IV SCH (05:32)
[2021-11-18] MEDS: hydrOXYzine HCl 25 MG TAB PO SCH (08:48)
[2021-11-18] MEDS: ACETAMINOPHEN 1,000 MG/100 ML VIAL IV PRN (08:48)
--- NOTE | 2021-11-18 09:22 | Urology Progress Note ---
Date of Service November 18, 2021 Assessment & Plan (1) Right distal ureteral calculus: (2) Nephrolithiasis: (3) S/P ureteral stent placement: Plan: - Pt POD#1 s/p cystoscopy, R ureteroscopy, laser lithotripsy, and right stent insertion with Dr. Garza. - Doing well, progressing as expected. - Afebrile overnight, no new lab work at time of visit. - Tolerating right ureteral stent without bother. - Patient feels ready for discharge today. - Okay to d/c from perspective when medically stable. - Plan to maintain right ureteral stent for 2-[address] Garza. - Recommend d/c with course of PO Tamsulosin, prn Pyridium and prn pain medication for stent management. - Expected clinical course reviewed, all questions answered. - Will arrange outpatient follow-up with our service for cysto/stent removal. Admission and Anticipated Discharge Date Admission Date: November 16, 2021 Subjective Patient seen and examined at bedside this AM. Awake, alert and sitting up in bed eating breakfast. Subjectively feeling very well, anxious to go home today. Denies flank or abdominal pain. Per chart review, has not utilized prn pain medication. Voiding without difficulty, reports hematuria post op starting to clear, no dysuria. Tolerating diet, no nausea or vomiting. No fever or chills. Review of Systems Constitutional: as per Subjective / HPI Gastrointestinal: as per Subjective / HPI Genitourinary: + as per Subjective / HPI Physical Exam Constitutional: well developed and well nourished; no acute distress and not ill appearing Respiratory: normal respiratory effort and able to speak in complete sentences; no respiratory distress and no labored breathing Cardiovascular: Extremities: no pedal edema Gastrointestinal (Abdomen): Inspection/Auscultation: abdomen normal to in spection; abdomen not distended Percussion/Palpation: abdomen soft; abdomen nontender and no guarding Neurologic: moves all extremities and awake Psychiatric: Orientation: alert, oriented x 3 and cooperative Genitourinary: no CVA tenderness Results & Data ([facility]) Vital Signs (Past 12 Hours) Vital Signs Temp Pulse Resp BP BP Pulse Ox 11/18/21 08:38 36.4 C L 62 17 156/87 H 96 11/18/21 03:23 36.5 C 60 17 156/91 H 97 11/18/21 00:04 36.6 C 69 16 154/84 H 96 PG Care Time/CCT Total # of Minutes Spent Total Time Spent with Patient: Total time spent is greater than 50% in coordination of care (as documented) at patient's floor/unit and/or counseling patient: Coding Level of Care Code 14019 Subseq Hosp Care Lvl 2 Diagnoses Right distal ureteral calculus N20.1 Nephrolithiasis N20.0 S/P ureteral stent placement Z96.0
--- NOTE | 2021-11-18 10:26 | Discharge Summary ---
Date of Service November 18, 2021 Admission HPI Per Admitting Provider This is a 55-year-old male who recently underwent extracorporeal shockwave lithotripsy as directed by Dr. Looney on 11/14/2021. The operative report from this procedure was reviewed and good fragmentation of the patient's kidney stone was noted and he was discharged home in stable condition the same day of his procedure. The patient notes that he was doing very well following his procedure however last evening he developed right-sided flank pain that radiated to his abdomen. He did not note any palliative or provocative factors at the time however the pain persisted throughout the evening so he presented to the emergency department at [facility] today. He denies any fevers, shakes, chills. He does report nausea vomiting. The patient notes that he has not had any dysuria and he has not noted any hematuria. He denies any urinary frequency. He does report a history of kidney stones in the past on both sides for which he has had to have numerous interventions. Upon presentation to the emergency department today the patient did have labs and imaging which I independently reviewed. White blood cell count is elevated at 17.0. Hemoglobin, hematocrit, and platelet count are all within normal range. Chemistry profile showed sodium was 132. Potassium, BUN, and creatinine were all within the normal range. There is no significant elevation of LFTs or lipase. Urinalysis did show 1+ blood but was otherwise not indicative of infection. A Covid test has been performed and is pending. CT scan of the abdomen pelvis showed moderate right-sided hydroureteronephrosis which was somewhat increased when compared to prior CT scans. There is a 6 mm stone noted in the distal right ureter. At the time of my interview the patient notes that the pain was alleviated somewhat with medicines that were administered in the emergency department. He was in no distress at the time of my exam. Principal Diagnosis Ureterolithiasis Discharge Exam No pain Constitutional WD/WN, vitals as above Respiratory normal respiratory effort, lungs clear to auscultation Cardiovascular RRR, no murmur, no edema Gastrointestinal (Abdomen) Percussion/Palpation: abdomen soft; abdomen nontender Psychiatric Orientation: alert Genitourinary no CVA tenderness Discharge Data Allergies Allergy/AdvReac Type Severity Reaction Status Date / Time No Known Allergies Allergy Verified 11/14/21 08:30 Consultations 11/16/21 12:30 ED Decision to Admit Stat 11/16/21 16:42 Consult Urology Routine Procedures Performed Operation Date: 11/17/21 10:00 Actual Procedures p Right Retrograde Pyelogram, Right Ureteral Dilation, Right Ureteroscopy and Laser Lithotripsy, Basket Stone Extraction(Right) - DO tessy Coleman Cystoscopy(Not Applicable) - DO tessy Coleman Right Stent Insertion, (Right) - Baldemar Garza DO Ordered Studies 11/16/21 11:03 CT abd pelvis wo con Stat IMPRESSION: Moderate right hydronephrosis/hydroureter, somewhat increased from prior exam. The previously noted ureteric stone is located more distally in the ureter. UVJ stones are also noted. 11/17/21 13:00 FL retrograde includes kub Routine Hospital Course (1) Right distal ureteral calculus: Emil Valladares is a 55 year old male admitted to [facility] from November 16 - 2021 due to recurrent kidney stone pain after recent lithotripsy. He was diagnosed with recurrent kidney stones and treated with right ureteral stent placement, laser lithotripsy and stone extraction. No infection identified but you were covered perioperatively for infection with intravenous ceftriaxone. He should follow-up as an outpatient with urology for ureteral stent removal. (2) Hydroureteronephrosis: (3) Status post extracorporeal shock wave therapy: Total Time Total Time Spent Total Time Spent (In Minutes): 25 Discharge Plan Discharge Items Patient Disposition: Home - Self-Care Reason For Visit: KIDNEY STONE Discharge Diagnosis: Ureterolithiasis (kidney stone) Activity: Resume your previous activity Non-emergency contact: Primary Care Provider Call non-emergency contact if: you have any medication questions and your symptoms worsen Follow-up/Referrals: Baldemar Garza DO [Physician] - 12/03/21 3:15 pm (Follow up ureteral stent removal) Kaila Saenz DO [Primary Care Provider] - Diet: Regular Addtl Attending Provider Instructions: You were admitted to [facility] from November 16 - 2021 due to recurrent kidney stone pain after recent lithotripsy. You were diagnosed with recurrent kidney stones and treated with right ureteral stent placement, l aser lithotripsy and stone extraction. No infection identified but you were covered perioperatively for infection with intravenous ceftriaxone. Please follow up with urology for ureteral stent removal. Pending Studies at Discharge: Yes (stone analysis) Stand-Alone Forms: My [facility] [employer], Smoking Cessation Medications and DC Order Prescriptions: Continued hydrocodone-acetaminophen 5-325 mg tablet 1 tab PO Q6H PRN (Reason: pain) Qty: 10 RF: 0 fosinopril 10 mg tablet 10 mg PO HS RF: 0 omeprazole 20 mg capsule,delayed release(DR/EC) 20 mg PO HS RF: 0 aspirin 81 mg Tablet,Delayed Release (Dr/Ec) 81 mg PO HS RF: 0 rosuvastatin [Crestor] 10 mg Tablet 10 mg PO HS RF: 0 lidocaine [Lidoderm] 5 % adhesive patch,medicated 1 patch TOP DAILY PRN (Reason: Pain) RF: 0 montelukast 10 mg tablet 10 mg PO HS RF: 0 Biktarvy 50-200-25 mg tablet 1 tab PO HS RF: 0 azelastine 137 mcg (0.1 %) aerosol,spray 1 spray INTRANASAL DAILY PRN (Reason: Allergy Symptoms) RF: 0 metoprolol succinate 25 mg tablet extended release 24 hr 25 mg PO HS RF: 0 fluoxetine 10 mg capsule 10 mg PO HS RF: 0 hydroxyzine HCl 25 mg tablet 25 mg PO BID RF: 0 albuterol sulfate [ProAir HFA] 90 mcg/actuation HFA aerosol inhaler 1 puff INHALATION Q6H PRN (Reason: Shortness Of Breath Or Wheezing) RF: 0 tamsulosin [Flomax] 0.4 mg capsule 0.4 mg PO HS RF: 0 ondansetron 4 mg tablet,disintegrating 4 mg PO Q6H PRN (Reason: nausea and vomiting) Qty: 10 RF: 0 oxycodone 5 mg tablet 5 mg PO Q4H PRN (Reason: pain) Qty: 15 RF: 0 Discharge Orders: Discharge Order (Routine); Ordered 11/18/21 Ordered By: Dov Gardiner/Other Patient Handouts: Shock Wave Lithotripsy, Having a Ureteral Stent, Understanding Kidney Stones, Preventing Kidney Stones Admission Data Admit Date/Time: 11/16/21 12:59 Attending Provider: Dov Cifuentes Admit Provider: Alvin Andrade Primary Care Provider: Kaila Saenz Other Providers: Dov Cifuentes ; Jimmy Looney Other Interventions: Discharge Summary Assessment (RN) Last Done: 11/18/21 12:33 Coding Level of Care Code D/C DAY MANAGEMENT <30 MINS Diagnoses Right distal ureteral calculus N20.1 Hydroureteronephrosis N13.30 Status post extracorporeal shock wave therapy Z98.890
[2021-11-18] MEDS ORDERED: cefTRIAXone SODIUM 1,000 MG in DEXTROSE 5% 50 ML IV ONE (10:30)
[2021-11-21 01:01] LABS: Component 2 DNR; Source RIGHT URETERAL STONE
== END 2021-11-18 12:30 | disposition home or self-care (01) | DRG 661 ==
LOC: ED 10:39 → EDINP 12:59 → 3N 16:56